=== PATIENT | male | born 1970 | race Caucasian/White ===

== ENCOUNTER 2017-03-17 19:33 | Emergency (ER) | payer BC ==
--- NOTE | 2017-03-17 19:43 | EDM.PDOC ---
ED HPI GENERAL MEDICAL PROBLEM - General Chief Complaint: General Stated Complaint: ARM IS HURTING, [id number] Time Seen by Provider: 03/17/17 19:38 Source of Information: Reports: Patient History Limitations: Reports: No Limitations - History of Present Illness INITIAL COMMENTS - FREE TEXT/NARRATIVE: 46 yo white male c/o right upper extremity pain after lifting box approx 40 pounds thirty mins. ago at work Onset: Today Onset Date: 03/17/17 Onset Time: 19:00 Duration: Minutes: Location: Reports: Upper Extremity, Right Quality: Reports: Ache Severity: Moderate Improves with: Reports: Rest Worsens with: Reports: Movement Context: Reports: Lifting Associated Symptoms: Reports: No Other Symptoms Right Elbow Pain Score (Numeric/FACES): 5 - Related Data Allergies Allergy/AdvReac Type Severity Reaction Status Date / Time No Known Allergies Allergy Verified 03/17/17 19:43 Home Meds: Home Meds Ketoprofen 75 mg PO Q4HR PRN 03/17/17 [History] Review of Systems - Review of Systems Review Of Systems: See Below Constitutional: Reports: No Symptoms Eyes: Reports: No Symptoms Ears: Reports: No Symptoms Nose: Reports: No Symptoms Mouth/Throat: Reports: No Symptoms Respiratory: Reports: No Symptoms Cardiovascular: Reports: No Symptoms GI/Abdominal: Reports: No Symptoms Genitourinary: Reports: No Symptoms Musculoskeletal: Reports: Arm Pain (right upper extremity btwn elbow and mid forearm) Skin: Reports: No Symptoms Neurological: Reports: No Symptoms Psychiatric: Reports: No Symptoms ED EXAM, GENERAL - Physical Exam Exam: See Below Exam Limited By: No Limitations General Appearance: Alert, No Apparent Distress, Obese Eye Exam: Bilateral Eye: EOMI, PERRL Ears: Normal External Exam Nose: Normal Inspection Throat/Mouth: Normal Inspection Head: Atraumatic, Normocephalic Neck: Normal Inspection, Supple Respiratory/Chest: No Respiratory Distress, Lungs Clear Cardiovascular: Normal Peripheral Pulses, Regular Rate, Rhythm Peripheral Pulses: 2+: Radial (L), Radial (R) GI/Abdominal: Normal Bowel Sounds Extremities: Normal Inspection, Normal Range of Motion, Arm Pain (right w/ abduction and supination) Neurological: Alert, Oriented, CN II-XII Intact, Normal Cognition, Normal Gait Psychiatric: Normal Affect Skin Exam: Warm, Dry, Intact, Normal Color, No Rash Lymphatic: No Adenopathy Course - Vital Signs Last Recorded V/S: Last Vital Signs Temp 36.2 C 03/17/17 19:36 Pulse 92 03/17/17 19:36 Resp 18 03/17/17 19:36 BP 152/94 H 03/17/17 19:36 Pulse Ox 98 03/17/17 19:36 Departure - Departure Time of Disposition: 20:06 Disposition: Home, Self-Care 01 Condition: Good Clinical Impression: Muscle strain of right forearm Qualifiers: Encounter type: initial encounter Qualified Code(s): S56.911A - Strain of unspecified muscles, fascia and tendons at forearm level, right arm, initial encounter - Discharge Information Forms: ED Department Discharge Additional Instructions: Rest Wear Right Upper Extremity Sling when Up No Use of Right upper extremity until evaluated by Orthopedics For Pain and Swelling : Elevate and Apply Ice Pack TID X 15 mins. Take Prescribed medication as directed: KETOPROFEN 50mg TID # 30 F/U w/ Orthopedics at the [facility] in [place] [phone] [facility] [phone]
== END 2017-03-17 20:17 | disposition home or self-care (01) ==
LOC: DL.ED 19:33 → EEVIPCON 19:33 → DL.ED 20:17
DX: S56.911A Strain of unspecified muscles, fascia and tendons at forearm level, right arm, initial encounter (principal); X50.0XXA Overexertion from strenuous movement or load, initial encounter
CPT/HCPCS: 73090-RT; 99283